=== PATIENT | female | born 1940 | race Caucasian/White ===

== ENCOUNTER 2024-05-22 17:25 | Emergency (ER) | payer MEDICARE, BC ==
[~2024-05-22] VITALS: Ht 170.2 cm; Wt 60.9 kg
[2024-05-22] MEDS ORDERED: NS 500 ML IV ONE (18:00)
[2024-05-22] MEDS ORDERED: CARDIZEM CD 18180 MG PO (18:34)
[2024-05-22] MEDS ORDERED: ULTRAM 50MG TAB50 MG PO (18:35)
[2024-05-22] MEDS ORDERED: PRAVACHOL 40MG40 MG PO (18:35)
[2024-05-22] MEDS ORDERED: SYNTHROID0.05 MG/TA PO (18:35)
[2024-05-22] MEDS ORDERED: ALDACTONE 25MG25 M1 PO (18:35)
[2024-05-22 19:16] LABS: BASO # 0.1 K/mm3 (0.0-0.2); BASO % 0.6 % (0.0-2.0); EOS # 0.2 K/mm3 (0.0-0.7); EOS % 2.2 % (0.0-4.0); GRAN # 7.2 K/mm3 (1.4-6.5); GRAN % 71.2 % (42.2-75.2); HEMATOCRIT 37.6 % (37.0-47.0); HEMOGLOBIN 12.3 g/dl (12.5-16.0); LYMPH # 1.8 K/mm3 (1.2-3.4); LYMPH % 17.3 % (20.0-51.0); MEAN CELL VOLUME 96 fl (80.0-100.0); MEAN CORPUSCULAR HEMOGLOBIN 31 pg (27-31); MEAN CORPUSCULAR HGB CONC 33 g/dl (33.0-37.0); MEAN PLATELET VOLUME 9.7 fl (7.4-10.4); MONO # 0.8 K/mm3 (0.1-0.6); MONO % 8.3 % (1.7-9.3); PLATELET COUNT 208 K/mm3 (130-400); RED BLOOD COUNT 3.92 M/mm3 (4.10-5.30); REDCELL DISTRIBUTION WIDTH-CV 11.8 % (11.5-14.5)
[2024-05-22] MEDS ORDERED: Lido/EPI/Tetrac Gel 3 ML SYRINGE TOP ONE (19:30)
[2024-05-22 19:32] LABS: ALBUMIN 4.4 g/dL (3.4-4.8); BILIRUBIN,TOTAL 0.4 mg/dL (0.2-1.2); CALCIUM 9.4 mg/dL (8.4-10.2); CREATININE, serum 0.96 mg/dL (0.57-1.11); TOTAL PROTEIN 7.6 g/dl (6.2-8.1)
[2024-05-22 20:55] VITALS: BP 103/71; PULSE 80; TEMP 97.6
== END 2024-05-22 20:58 | disposition home or self-care (01) ==
LOC: COL.ER 17:25
PROVIDERS: Emergency Medicine
DX: S01.111A Laceration without foreign body of right eyelid and periocular area, initial encounter (principal); R55 Syncope and collapse; W22.8XXA Striking against or struck by other objects, initial encounter; Y93.01 Activity, walking, marching and hiking; Y92.59 Other trade areas as the place of occurrence of the external cause
CPT/HCPCS: J7040